=== PATIENT | female | born 1970 | race Caucasian/White ===

== ENCOUNTER 2022-09-01 01:20 | Emergency (ER) | payer BC ==
[2022-09-01] MEDS ORDERED: Acetaminophen/oxyCODONE 325-5 MG Tab PO ONE (01:51)
[2022-09-01] MEDS ORDERED: Ibuprofen 600 MG Tab PO ONE (01:51)
== END 2022-09-01 03:15 | disposition home or self-care (01) ==
LOC: MW.ED 01:20
DX: S49.91XA Unspecified injury of right shoulder and upper arm, initial encounter (principal); W00.0XXA Fall on same level due to ice and snow, initial encounter
CPT/HCPCS: 73030; 73090; 99283; A9270